=== PATIENT | male | born 1985 | race Caucasian/White ===

== ENCOUNTER → 2016-12-06 | Outpatient (CLI) | payer OTHER ==
--- NOTE | ~2016-12-06 | CR151 ---
[facility] A Service of [facility] & [facility] RADIOLOGY TEXT RESULTS PATIENT: KOKO WILLIAMSON LOCATION: [facility] : 89 UNIT #: [id number] AGE: [address]: SYDNEY CABRAL APRN SEX: M ORDER DR: [id number] [address] [address] [id number] O MR#: [id number] Acc #: [id number] NAME: KOKO WILLIAMSON : 1985 SEX: M STUDY DATE/TIME: 12/06/2016 16:37 UNIT: [facility] ROOM: STUDY DESCRIPTION: CR Hip Min 2 Views Rt Attending Physician: Sydney Cabral Aprn Referring Physician: Sydney Cabral Aprn Ordering Physician: Sydney Cabral Aprn Primary Care Physician: Sydney Cabral Aprn MEDICAL IMAGING REPORT This report is preliminary unless electronic signature is present. EXAM Right hip 2 views 12/06/2016 HISTORY Low back pain and right hip pain for 2 months progressively worsening. No known injury. FINDINGS AP and oblique examination of the hip shows adequate mineralization of the bones and a normal anatomic relationship of the femoral head with the acetabulum. There are no hypertrophic changes, fractures, dislocation, or joint capsular distension. No radiopaque foreign body is present about the soft tissues of the hip. IMPRESSION Normal hip. Dictated by... Geovanni Lovett M.D. THIS IS AN ELECTRONICALLY VERIFIED REPORT Geovanni Lovett M.D. at 12/08/2016 6:18 AM KRT/reese TD: 12/07/2016 12:48 JOB #: [id number] MEDICAL IMAGING REPORT Page 1 of 1
--- NOTE | ~2016-12-06 | CR181 ---
[facility] A Service of [facility] & [facility] RADIOLOGY TEXT RESULTS PATIENT: KOKO WILLIAMSON LOCATION: [facility] : 89 UNIT #: [id number] AGE: [address]: SYDNEY CABRAL APRN SEX: M ORDER DR: [id number] [address] [address] [id number] O MR#: [id number] Acc #: [id number] NAME: KOKO WILLIAMSON : 1985 SEX: M STUDY DATE/TIME: 12/06/2016 16:37 UNIT: [facility] ROOM: STUDY DESCRIPTION: CR Lumbar Spine 2 or 3 Views Attending Physician: Sydney Cabral Aprn Referring Physician: Sydney Cabral Aprn Ordering Physician: Sydney Cabral Aprn Primary Care Physician: Sydney Cabral Aprn MEDICAL IMAGING REPORT This report is preliminary unless electronic signature is present. EXAM Lumbar spine 3 views 12/06/2016 HISTORY Low back pain and right hip pain for 2 months progressively worsening. No known injury. FINDINGS AP and lateral projections of the lumbar segment show good mineralization of both anterior and posterior elements. They are all anatomically normal without indication of fracture, dislocation, or malignant change of a sclerotic or lytic type. There is no congenital defect noted. The sacroiliac joints are normal. IMPRESSION Normal lumbar spine. Dictated by... Geovanni Lovett M.D. THIS IS AN ELECTRONICALLY VERIFIED REPORT Geovanni Lovett M.D. at 12/08/2016 6:18 AM KRT/to TD: 12/07/2016 12:47 JOB #: [id number] MEDICAL IMAGING REPORT Page 1 of 1
== END | disposition home or self-care (01) ==
LOC: SRAD 16:05
DX: M25.551 Pain in right hip (principal); M54.5 Low back pain
CPT/HCPCS: 72100; 73502